=== PATIENT | female | born 1965 | race Caucasian/White ===

== ENCOUNTER 2018-03-10 18:18 | Emergency (ER) | payer OTHER ==
[2018-03-10 18:38] VITALS: BP 162/82
--- NOTE | 2018-03-10 18:43 | UC ---
Ear Complaint HPI - HPI Summary HPI Summary: 52 yo female with 02/19 right ear pain while driving to [place] from [place] pain now -10/22 no URI symptoms - History of Current Complaint Chief Complaint: UCEar Stated Complaint: EAR PAIN Time Seen by Provider: 03/10/18 18:25 Hx Obtained From: Patient Hx Last Menstrual Period: 02/10/18 Onset/Duration: Gradual Onset Severity Initially: Moderate Severity Currently: Mild Pain Intensity: 1 Pain Scale Used: 0-10 Numeric Aggravating Factors: Nothing Alleviating Factors: Nothing - Allergies/Home Medications Allergies/Adverse Reactions: Allergies Allergy/AdvReac Type Severity Reaction Status Date / Time Penicillins Allergy Rash Verified 03/10/18 18:40 neuroxin Allergy Rash Uncoded 03/10/18 18:40 reglin Allergy Hives/Diff. Uncoded 03/10/18 18:40 Breathing/I tching Home Medications: Home Medications Fexofenadine/Pseudoephedrine [Herminia-D 24 Hour Tablet] 03/10/18 [History] Ibuprofen TAB* [Advil TAB*] 03/10/18 [History] Interferon Beta-1A [Avonex Pen] 03/10/18 [History] PMH/Surg Hx/FS Hx/Imm Hx Previously Healthy: Yes Cardiovascular History: Hypertension - whitecoat - Surgical History Surgical History: Yes Surgery Procedure, Year, and Place: wisdom teeth - Family History Known Family History: Positive: Hypertension - Social History Alcohol Use: Occasionally Substance Use Type: None Smoking Status (MU): Never Smoked Tobacco Review of Systems Constitutional: Negative Skin: Negative Eyes: Negative ENT: Ear Ache Respiratory: Negative Cardiovascular: Negative Gastrointestinal: Negative Genitourinary: Negative Motor: Negative Neurovascular: Negative Musculoskeletal: Negative Neurological: Negative Psychological: Negative Is Patient Immunocompromised?: No All Other Systems Reviewed And Are Negative: Yes Physical Exam Triage Information Reviewed: Yes Appearance: Well-Appearing, No Pain Distress, Well-Nourished Vital Signs: Initial Vital Signs Temp 98.5 F 03/10/18 18:31 Pulse 84 03/10/18 18:31 Resp 18 03/10/18 18:31 BP 162/82 03/10/18 18:31 Pulse Ox 98 03/10/18 18:31 Vital Signs Reviewed: Yes Eyes: Positive: Conjunctiva Clear ENT: Positive: Hearing grossly normal, TMs normal. Negative: Tonsillar swelling , Tonsillar exudate, Sinus tenderness, Uvula midline Neck: Positive: Supple, Nontender Respiratory: Positive: Lungs clear, Normal breath sounds, No respiratory distress Cardiovascular: Positive: RRR, No Murmur Abdominal Exam: Normal Musculoskeletal: Positive: ROM Intact, No Edema Neurological: Positive: Alert Psychological Exam: Normal Skin Exam: Normal Ear Complaint Course/Dx - Differential Dx/Diagnosis Provider Diagnoses: eustachian tube dysfunction Discharge - Sign-Out/Discharge Documenting (check all that apply): Discharge/Admit/Transfer - Discharge Plan Condition: Stable Disposition: HOME Patient Education Materials: Earache (ED) Referrals: No Primary Care Phys,NOPCP [Primary Care Provider] - Additional Instructions: advil or aleve if needed recheck for new or worsening symptoms when you travel home try Afrin nasal spray - Billing Disposition and Condition Condition: STABLE Disposition: Home
== END 2018-03-10 19:05 | disposition home or self-care (01) ==
LOC: UCEAST 18:18
DX: H69.91 Unspecified Eustachian tube disorder, right ear (principal); I10 Essential (primary) hypertension; Z88.0 Allergy status to penicillin; Z88.8 Allergy status to other drugs, medicaments and biological substances
CPT/HCPCS: 99201; G0463